=== PATIENT | male | born 1960 | race Caucasian/White ===

== ENCOUNTER → 2021-06-07 | Outpatient (CLI) | payer MEDICARE | LOC: LAB 11:44 | DX: Z20.822 Contact with and (suspected) exposure to COVID-19 (principal) ==

== ENCOUNTER 2021-07-12 10:15 | Emergency (ER) | payer MEDICARE ==
[~2021-07-12] VITALS: Wt 74.8 kg
[2021-07-12 14:42] VITALS: BP 104/69
== END 2021-07-12 12:01 | disposition short-term general hospital (02) ==
LOC: ED 10:15
DX: S22.41XA Multiple fractures of ribs, right side, initial encounter for closed fracture (principal); J93.0 Spontaneous tension pneumothorax; F17.210 Nicotine dependence, cigarettes, uncomplicated; Z12.5 Encounter for screening for malignant neoplasm of prostate; W19.XXXA Unspecified fall, initial encounter; W22.03XA Walked into furniture, initial encounter; Y92.009 Unspecified place in unspecified non-institutional (private) residence as the place of occurrence of the external cause
CPT/HCPCS: J2270

== ENCOUNTER → 2021-07-12 | Outpatient (CLI) | payer MEDICARE ==
[2021-07-12 09:40] LABS: HEMATOCRIT 42.1 % (42.0-52.0); HEMOGLOBIN 14.5 g/dL (13.5-18.0); MEAN CELL VOLUME 105 fl (78-100); MEAN CORPUSCULAR HEMOGLOBIN 36 pg (27-31); MEAN CORPUSCULAR HGB CONC 34 g/dL (33-37); MEAN PLATELET VOLUME 9.1 fl (7.4-10.4); PLATELET COUNT 287 K/mm3 (130-400); RED BLOOD COUNT 4.03 M/mm3 (4.20-5.60); RED CELL DISTRIBUTION WIDTH 12.4 % (11.5-14.5); WHITE BLOOD COUNT 10.8 K/mm3 (4.8-10.8)
[2021-07-12 10:05] LABS: LYMPHOCYTE 21 % (20-51); MONOCYTE 9 % (3-10); NEUTROPHILS 70 % (42-75)
[2021-07-12 18:16] LABS: ALBUMIN 4.1 g/dL (3.5-5.0); POTASSIUM 4.2 mmol/L (3.5-5.1)
[2021-07-12 18:17] LABS: CALCIUM 9.5 mg/dL (8.3-10.5)
[2021-07-12 18:18] LABS: TOTAL PROTEIN 8.1 g/dL (6.4-8.3)
[2021-07-12 18:20] LABS: TOTAL BILIRUBIN 0.6 mg/dL (0.2-1.2)
== END ==
LOC: RAD 09:15
PROVIDERS: Physician Assistant
DX: Z00.00 Encounter for general adult medical examination without abnormal findings (principal); S20.211A Contusion of right front wall of thorax, initial encounter; Z12.5 Encounter for screening for malignant neoplasm of prostate; J93.9 Pneumothorax, unspecified; S22.41XA Multiple fractures of ribs, right side, initial encounter for closed fracture

== ENCOUNTER → 2021-07-27 | Outpatient (CLI) | payer MEDICARE ==
[2021-07-27 14:09] LABS: POTASSIUM 4.5 mmol/L (3.5-5.1)
[2021-07-27 14:10] LABS: CALCIUM 9.2 mg/dL (8.3-10.5)
== END ==
LOC: LAB 13:45
PROVIDERS: Physician Assistant
DX: E87.1 Hypo-osmolality and hyponatremia (principal)

== ENCOUNTER → 2022-12-19 | Outpatient (CLI) | payer MEDICARE | LOC: RAD 16:09 | DX: M47.816 Spondylosis without myelopathy or radiculopathy, lumbar region (principal); M16.0 Bilateral primary osteoarthritis of hip ==

== ENCOUNTER → 2022-12-31 | Outpatient (CLI) | payer MEDICARE | LOC: RAD 08:27 | DX: M16.12 Unilateral primary osteoarthritis, left hip (principal); M94.252 Chondromalacia, left hip ==

== ENCOUNTER → 2024-09-22 | Outpatient (CLI) | payer MEDICARE ==
[2024-09-22 11:21] LABS: BASO # 0.04 K/mm3 (0.02-0.10); EOS # 0.14 K/mm3 (0.04-0.40); EOS % 1.6 % (0.0-4.0); HEMATOCRIT 38.2 % (42.0-52.0); HEMOGLOBIN 13.2 g/dL (13.5-18.0); LYMPH# 2.18 K/mm3 (1.50-4.00); MEAN CELL VOLUME 108 fl (78-100); MEAN CORPUSCULAR HEMOGLOBIN 37 pg (27-31); MEAN CORPUSCULAR HGB CONC 35 g/dL (33-37); MEAN PLATELET VOLUME 8.8 fl (7.4-10.4); MONO # 1.05 K/mm3 (0.20-0.80); NEU # 5.22 K/mm3 (1.40-6.50); PLATELET COUNT 305 K/mm3 (130-400); RED BLOOD COUNT 3.55 M/mm3 (4.20-5.60); WHITE BLOOD COUNT 8.7 K/mm3 (4.8-10.8)
[2024-09-22 11:34] LABS: ALBUMIN 4.1 g/dL (3.4-4.8)
[2024-09-22 11:35] LABS: CALCIUM 9.8 mg/dL (8.3-10.5)
[2024-09-22 11:38] LABS: TOTAL BILIRUBIN 0.3 mg/dL (0.2-1.2)
== END ==
LOC: LAB 11:08
PROVIDERS: Physician Assistant
DX: Z12.5 Encounter for screening for malignant neoplasm of prostate (principal); Z13.29 Encounter for screening for other suspected endocrine disorder; E87.1 Hypo-osmolality and hyponatremia; K90.9 Intestinal malabsorption, unspecified; E78.5 Hyperlipidemia, unspecified